=== PATIENT | male | born 1975 | race Caucasian/White ===

== ENCOUNTER 2018-08-04 13:16 | Emergency (ER) | payer OTHER ==
[2018-08-04] MEDS ORDERED: PARO-243 PO (15:00)
[2018-08-04] MEDS ORDERED: BUSP10TA95 PO (15:00)
[2018-08-04] MEDS ORDERED: SIMV-49 PO (15:00)
[2018-08-04] MEDS ORDERED: OMEG-5 (15:00)
[2018-08-04] MEDS ORDERED: PROP60CA22 PO (15:00)
--- NOTE | 2018-08-04 15:14 | ER Report ---
History and Physical Time Seen By MD: 15:14 Hx. of Stated Complaint: patient states dental pain. States pain is untolerable today. radiates into jaw and back of neck HPI/ROS CHIEF COMPLAINT: Dental pain HISTORY OF PRESENT ILLNESS: 42-year-old male patient presents to emergency room with complaint of dental pain. Patient states he is having pain to the right side of the upper teeth. Patient states that he is taking Tylenol ibuprofen for this with no improvement. He denies having any fevers, chills, nausea, vomiting or diarrhea. Patient states he has not seen a dentist in almost 6 years. He states that his pain has been going on for the last 3 days. Allergies: Coded Allergies: No Known Drug Allergies (Unverified , 08/04/18) Home Meds Active Scripts Hydrocodone Bit/Acetaminophen (HYDROCODON-ACETAMINOPHEN 5-325) 1 Each Tablet, 1 EACH PO Q4-6H PRN for PAIN, #12 TAB Prov:INÉS LINDO [facility] 08/04/18 Amoxicillin 500 Mg Tab (AMOXICILLIN 500 MG TAB) 500 Mg Tablet, 1 TAB PO Q8H, #30 TAB Prov:INÉS LINDO [facility] 08/04/18 Reported Medications [place]-3/Dha/Epa/Fish Oil (Fish Oil 500 mg Softgel) 60 Mg-90 Mg-500 Mg Capsule 08/04/18 Simvastatin (SIMVASTATIN) 20 Mg Tablet, 20 MG PO HS, TAB 08/04/18 Propranolol Hcl (PROPRANOLOL HCL) 60 Mg Cap.sa.24h, 120 MG PO QDAY 08/04/18 Buspirone Hcl (BUSPIRONE HCL) 10 Mg Tablet, 20 MG PO BID, #20 TAB 08/04/18 Paroxetine Hcl (PAXIL) 20 Mg Tablet, 40 MG PO QDAY, TAB 08/04/18 Past Medical/Surgical History Patient has a past medical history of TBI, vertigo, migraines, hypertension, hyp erlipidemia, fatty liver, arthritis, back pain. Patient denies any surgical history. Reviewed Nurses Notes: Yes Constitutional Vital Sign - Last 24 Hours 08/04/18 08/04/18 08/04/18 08/04/18 13:33 15:03 16:00 16:24 Temp 98.0 Pulse 83 74 Resp 20 B/P (MAP) 166/106 (126) 164/112 (129) 164/112 (129) Pulse Ox 90 Physical Exam General Appearance: The patient is alert, has no immediate need for airway protection and no current signs of toxicity. ENT: Patient has tooth #2 and tooth #6 that are in poor repair, no swelling, or obvious signs of abscess are noted. Respiratory: Chest is non tender, lungs are clear to auscultation. Cardiac: regular rate and rhythm DIFFERENTIAL DIAGNOSIS: After history and physical exam differential diagnosis was considered for toothache, infection, abscess. Medical Decision Making ED Course/Re-evaluation ED Course Patient was admitted to the exam room, history and physical were obtained. Differential diagnoses were considered. On examination the lungs are clear, h eart is regular. Tooth #2 and #6 are in poor repair. We discussed doing a dental block which patient was okay with. I did inject 3 cc of 1% lidocaine and 0.5% Marcaine at the base of tooth #2 and tooth #6. On reevaluation patient states his pain is significant for a better, he states he went from a 10 out of 10 to a 4 out of 10. We will go ahead and discharge patient home at this time. He will be given antibiotics, amoxicillin 500 mg 3 times a day 10 days and a limited supply of hydrocodone/acetaminophen 5/325. Patient is follow-up with a dentist. He is to call to make an appointment. Patient and his significant other verbalized understanding and agreement with plan. Decision to Disposition Date: Aug 04, 2018 Decision to Disposition Time: 15:54 Depart Departure Latest Vital Signs Vital Signs Date Time Temp Pulse Resp B/P (MAP) Pulse Ox O2 Delivery O2 Flow Rate FiO2 08/04/18 16:24 74 164/112 (129) 08/04/18 13:33 98.0 20 90 Impression: Primary Impression: Toothache Condition: Improved Disposition: HOME OR SELF-CARE New Scripts Hydrocodone Bit/Acetaminophen (HYDROCODON-ACETAMINOPHEN 5-325) 1 Each Tablet 1 EACH PO Q4-6H PRN for PAIN, #12 TAB Prov: INÉS LINDO 08/04/18 Amoxicillin 500 Mg Tab (AMOXICILLIN 500 MG TAB) 500 Mg Tablet 1 TAB PO Q8H, #30 TAB Prov: INÉS LINDO 08/04/18 Patient Instructions: Toothache (ED) Additional Instructions: You may take Ibuoprofen in addition to the pain medication as needed for pain. Rinse mouth with warm salt water after every meal. Eat soft foods. Follow up with your dentist as soon as possible, call to make an appointment. Return to the ER if condition worsens. INÉS LINDO Aug 04, 2018 15:14
[2018-08-04] MEDS ORDERED: AMOX500T10 PO (15:53)
[2018-08-04] MEDS ORDERED: HYDR-385 PO (15:53)
[2018-08-04 16:24] VITALS: BP 164/112
== END 2018-08-04 16:10 | disposition home or self-care (01) ==
LOC: ER 15:25
DX: K08.89 Other specified disorders of teeth and supporting structures (principal)
CPT/HCPCS: 99283